=== PATIENT | female | born 1985 | race Caucasian/White ===

== ENCOUNTER → 2020-03-18 10:21 | Outpatient (BNVA) | payer OTHER, SELFPAY | PROVIDERS: Family Provider Family Medicine; PCP Family Medicine; Visit Provider Specialist | DX: G43.711 Chronic migraine without aura, intractable, with status migrainosus (principal) | CPT/HCPCS: 99213 ==

== ENCOUNTER → 2021-01-22 14:30 | Outpatient (BNVA) | payer OTHER, SELFPAY | PROVIDERS: Family Provider Family Medicine; PCP Family Medicine; Visit Provider Nurse Practitioner Women's Health | DX: N92.6 Irregular menstruation, unspecified (principal) | CPT/HCPCS: 76830; 84702 ==

== ENCOUNTER → 2021-04-15 08:58 | Outpatient (BNVA) | payer OTHER, SELFPAY | PROVIDERS: Family Provider Family Medicine; PCP Family Medicine; Visit Provider Specialist | DX: G43.711 Chronic migraine without aura, intractable, with status migrainosus (principal) | CPT/HCPCS: 99212; 99213 ==

== ENCOUNTER 2021-11-29 10:54 | Outpatient (CLI) | payer OTHER, SELFPAY ==
[2021-11-29 11:05] VITALS: BP 128/90; PULSE 82; RESP 17; TEMP 36.8; O2SAT 98; BMI 31.1
[2021-11-29 11:47] VITALS: BP 124/86; PULSE 75; RESP 17; TEMP 36.9; O2SAT 98
[2021-11-29 12:40] VITALS: BP 129/88; PULSE 81; RESP 17; TEMP 36.7; O2SAT 98
[2021-11-29 12:42] VITALS: BP 129/88; PULSE 81; RESP 17; TEMP 36.7; O2SAT 98
== END 2021-11-29 10:55 | disposition home or self-care (01) ==
LOC: OPS 11:08
PROVIDERS: PCP Nurse Practitioner Family; Visit Provider Nurse Practitioner Family
DX: U07.1 COVID-19 (principal)
CPT/HCPCS: 96365

== ENCOUNTER 2022-02-19 10:31 | Emergency (ER) | payer OTHER, SELFPAY ==
[2022-02-19 10:45] VITALS: BP 127/86; PULSE 107; RESP 20; TEMP 36.7; O2SAT 96; BMI 32.0
[2022-02-19 10:48] VITALS: BP 127/86; RESP 16; O2SAT 97
--- NOTE | 2022-02-19 10:56 | CTR_ITS ---
PROCEDURE INFORMATION: Exam: CT Head Without Contrast Exam date and time: 02/19/2022 11:22 AM Age: 36 years old Clinical indication: Pain; Headache/fever TECHNIQUE: Imaging protocol: Computed tomography of the head without contrast. Radiation optimization: All CT scans at this facility use at least one of these dose optimization techniques: automated exposure control; mA and/or kV adjustment per patient size (includes targeted exams where dose is matched to clinical indication); or iterative reconstruction. COMPARISON: CT head wo con* [id number] 03/25/2019 9:09 PM RADIATION DOSE METRICS: Total DLP (mGy-cm): 785.05 FINDINGS: Brain: Normal. No hemorrhage. Unremarkable white matter. No mass effect. Cerebral ventricles: No ventriculomegaly. Paranasal sinuses: Visualized sinuses are unremarkable. No fluid levels. Mastoid air cells: Visualized mastoid air cells are well aerated. Bones/joints: Unremarkable. No acute fracture. Soft tissues: Unremarkable. CT/CT head wo con* [id number] IMPRESSION: No acute intracranial abnormality.
[2022-02-19 11:16] LABS: Basophils % 0.3 %; Eosinophils % 0.2 %; Hematocrit 44.4 % (37.0-47.0); Hemoglobin 14.7 g/dL (11.5-15.3); Lymphocytes # 1.8 10^3/uL (0.8-4.8); Lymphocytes % 15.3 %; Mean Corpuscular HGB Conc 33.1 g/dL (30.0-36.0); Mean Corpuscular Hemoglobin 28.4 pg (28.0-34.0); Mean Corpuscular Volume 85.9 fl (81-99); Mean Platelet Volume 10.3 fL (7.4-10.4); Monocytes % 8.6 %; Neutrophils # 8.64 10^3/uL (1.8-7.7); Neutrophils % 75.4 %; Nucleated Red Blood Cells % 0 %; Platelet Count 215 10^3/cmm (130-400); Red Blood Count 5.17 10^6/uL (4.1-5.3); Red Cell Distribution Width 12.8 % (12.1-15.1); White Blood Count 11.5 10^3/uL (4.0-10.0)
[2022-02-19 11:29] LABS: Add Urine Microscopic? YES; Bilirubin Urine 1+ (Negative); Blood Urine 3+ (Negative); Glucose Urine UA Norm (Normal); Ketones Urine 1+ (Negative); Leukocyte Esterase Urine Negative (Negative); Nitrate Urine Negative (Negative); Protein Urine 3+ (Negative); Urine Appearance SL Hazy (CLEAR); Urine Color Dark Yellow (Yellow); Urobilinogen Urine 4 mg/dL (Negative); pH Urine 5 (5-7)
[2022-02-19 11:30] LABS: WBC Urine 0-4 /hpf (0-5)
[2022-02-19 11:31] LABS: Add Urine Culture? Yes; Bacteria Urine 2+ /hpf; Mucus Urine 1+ /hpf
[2022-02-19 11:42] LABS: Alanine Aminotransferase 46 U/L (0-33); Albumin Level 4.6 g/dL (3.5-5.2); Alkaline Phosphatase 104 IU/L (35-105); Anion Gap 15.5 (5-19); Aspartate Amino Transferase 35 U/L (0-32); Blood Urea Nitrogen 11 mg/dL (6-20); Calcium 9.8 mg/dL (8.5-10.5); Carbon Dioxide 23 mmol/L (22-29); Chloride 97 mmol/L (98-107); Globulin 3.8 g/dL (1.3-4.6); Glomerular Filtration Rate 81.2 mL/min (90-130); Glucose 111 mg/dL (65-115); Osmolality Calculated 274 mOsm/kg (285-295); Potassium 3.5 mmol/L (3.5-5.1); Sodium 132 mmol/L (136-145); Total Protein 8.4 g/dL (6.6-8.7)
[2022-02-19 11:48] LABS: Procalcitonin 0.32 ng/mL (0-0.5)
[2022-02-19] MEDS: lactated ringers 1,000 ML 999 ML IV (12:10)
[2022-02-19] MEDS: promethazine 25 mg/mL SDV 1 mL IM (12:12)
--- NOTE | 2022-02-19 13:22 | ED_ITS ---
HPI - Fever General: Chief Complaint: Fever Stated Complaint: extreme pain/fever/vomiting Time Seen by Provider: 02/19/22 10:55 Source: patient Mode of arrival: ambulatory History of Present Illness: 36-year-old female presents emergency room she was recently diagnosed with zoster in C2 distribution excluding severe headache with nausea and vomiting and temps up to 103 at times. She has some mild photophobia. Spine awake and alert and oriented. Headaches are something new and different. She is on antivirals and prednisone. I have not significantly helped. She denies any shortness of breath she does have some mild neck pain with extension. MD elicited complaint: fever and malaise Pertinent past history: other (Recently diagnosed with zoster) Exacerbating factors: other (Extension of the neck) Relieving factors: nothing Associated symptoms: Reports headache(s); Deny abdominal pain, flank pain, chills, chest pain, confusion, cough, diarrhea, dysuria, extremity pain, myalgias, nasal congestion, nausea, night sweats, rash, rhinorrhea, short of breath, sinus pain, stiffness, sore throat, vaginal discharge, vomiting or weight loss Treatments prior to arrival fever: none Review of Systems Const: Denies: chills or night sweats ENMT: Denies: nasal congestion or sinus pain Card: Denies: chest pain Resp: Denies: dyspnea, productive cough or non-productive cough GI: Denies: abdominal pain, nausea, vomiting or diarrhea : Denies: flank pain, dysuria or vaginal discharge Musc: Denies: extremity pain Skin/Breast: Denies: rash or pruritus Neuro: Reports: headache(s); Denies: confusion PFSH ED PFSH: Medical History Migraine headache Reports occasional aura in the past-no change in her headaches with estrogen contraception. No pertinent past medical history neghx: htn,dm,thyroid,dvt/pe Dr. Velasquez Surgical History History of breast augmentation gel History of breast biopsy benign History of carpal tunnel release Hx of wisdom tooth extraction (~2014) Family History Mother Hyperlipidemia Family history of thyroid problem Father Hyperlipidemia Hypertension Grandmother Family history of thyroid problem Maternal grandmother Diabetes Paternal grandmother Breast cancer PGM---dx age 60 Heart disease Maternal Family/Other Family history of thyroid problem Maternal aunt Breast cancer Maternal Great Aunt x2---dx age unknown Maternal Great Grandmother---dx age unknown Grandfather Stroke Paternal grandfather Diabetes Paternal grandfather Heart disease Paternal grandfather Colon cancer Paternal--dx age late 60's Social History Smoking and tobacco status: never smoked Second hand smoke exposure: No Alcohol intake: never Desire information about alcohol rehabilitation?: No Desire information about substance/drug rehabilitation?: No Female Reproductive History: Date of last menstrual period: 02/06/22 Physical Exam Const: GENERAL APPEARANCE: cooperative and comfortable ORIENTATION/CONSCIOUSNESS: Yes awake, Yes oriented to person, Yes oriented to place and Yes oriented to time HENMT: COMMON NORMALS: normocephalic, atraumatic, hearing grossly normal bilaterally, external ears normal, EAC's normal, TM's normal bilaterally, Normal nasal mucous membranes and turbinates present, moist oral mucous membranes and oropharynx normal HEAD & SCALP: normocephalic and atraumatic NOSE: Normal nasal mucous membranes and turbinates present EXTERNAL EAR: Yes external ears normal EXTERNAL AUDITORY CANAL: EAC's normal TYMPANIC MEMBRANE: TM's n ormal bilaterally Neck/C-Spine: COMMON NORMALS: no JVD Resp: COMMON NORMALS: normal respiratory effort, No retractions, No use of accessory muscles and clear to auscultation bilaterally AUSCULTATION: clear to auscultation bilaterally Cardio: COMMON NORMALS: no JVD, regular rate, regular rhythm and No murmurs p resent (Cardio) RATE: regular rate RHYTHM: regular rhythm GI: COMMON NORMALS: Soft to palpation and No hepatosplenomegaly present AUSCULTATION: Yes normoactive bowel sounds PALPATION: Yes Soft to palpation, No Tenderness to palpation present (GI), No Guarding due to palpation present (GI) and Yes No hepatosplenomegaly present Extremity: COMMON NORMALS: normal to inspection, capillary refill normal, no clubbing, cyanosis or edema, no calf tenderness and no pedal edema Neuro: SENSORIUM/ORIENTATION: Yes oriented to person, Yes oriented to place and Yes oriented to time Skin: COMMON NORMALS: no rashes or lesions noted GENERAL SKIN EXAM: no rashes or lesions noted Procedures Lumbar Puncture Time Out Performed: Yes Patient Position: right lateral decubitus Skin Prep: Povidone-Iodine 1% and 0.5% Chlorhexidine/Alcohol Amount of anesthesia used (mL): 3 Spinal Needle Gauge: 22G Interspace Used: L3-L4 Fluid Initially Obtained: clear Complications: none Course Vital Signs: Vital signs: Vital Signs Temperature 98.0 F 02/19/22 10:45 Pulse Rate 107 H 02/19/22 10:45 Respiratory Rate 16 02/19/22 18:31 Blood Pressure 127/86 02/19/22 10:48 Pulse Oximetry 97 02/19/22 18:31 MDM - Fever Medical Decision Making Concerned about meningitis or herpetic encephalitis associated with zoster. CT head and MRI head were negative lumbar tap negative patient is feeling somewhat better reviewed labs and imaging with her we will go ahead and discharge her home return if she has further problems follow-up with her primary care doc continue the antivirals. Medical Records I reviewed the patient's medical records. Lab Data I reviewed the patient's lab results. : 02/19/22 11:00 02/19/22 11:[address] 02/19/22 10:56 IMPRESSION: No acute intracranial abnormality. Head MRI 02/19/22 13:35 IMPRESSION: No acute intracranial findings. There is a partially visualized peripherally enhancing structure in the right neck soft tissues posterior to the parotid gland. CT scan soft tissues neck with contrast is recommended for further evaluation if clinically warranted. Laboratory Results WBC 11.5 10^3/uL (4.0-10.0) H 02/19/22 11:00 RBC 5.17 10^6/uL (4.1-5.3) 02/19/22 11:00 Hgb 14.7 g/dL (11.5-15.3) 02/19/22 11:00 Hct 44.4 % (37.0-47.0) 02/19/22 11:00 MCV 85.9 fl (81-99) 02/19/22 11:00 MCH 28.4 pg (28.0-34.0) 02/19/22 11:00 MCHC 33.1 g/dL (30.0-36.0) 02/19/22 11:00 RDW 12.8 % (12.1-15.1) 02/19/22 11:00 Plt Count 215 10^3/cmm (130-400) 02/19/22 11:00 MPV 10.3 fL (7.4-10.4) 02/19/22 11:00 Neut % (Auto) 75.4 % 02/19/22 11:00 Lymph % (Auto) 15.3 % 02/19/22 11:00 Quay % (Auto) 8.6 % 02/19/22 11:00 Eos % (Auto) 0.2 % 02/19/22 11:00 Baso % (Auto) 0.3 % 02/19/22 11:00 Neut # (Auto) 8.64 10^3/uL (1.8-7.7) H 02/19/22 11:00 Lymph # (Auto) 1.8 10^3/uL (0.8-4.8) 02/19/22 11:00 [place] # (Auto) 1.0 10^3/uL (0.2-0.9) H 02/19/22 11:00 Eos # (Auto) 0.0 10^3/uL (0.0-0.8) 02/19/22 11:00 Baso # (Auto) 0.0 10^3/uL (0.0-0.1) 02/19/22 11:00 Nucleated RBC % (auto) 0 % 02/19/22 11:00 Nucleated RBCs # 0.0 /100WBC 02/19/22 11:00 Sodium 132 mmol/L (136-145) L 02/19/22 11:00 Potassium 3.5 mmol/L (3.5-5.1) 02/19/22 11:00 Chloride 97 mmol/L (98-107) L 02/19/22 11:00 Carbon Dioxide 23 mmol/L (22-29) 02/19/22 11:00 Anion Gap 15.5 (5-19) 02/19/22 11:00 BUN 11 mg/dL (6-20) 02/19/22 11:00 Creatinine 0.8 mg/dL (0.5-0.9) 02/19/22 11:00 GFR Calculation 81.2 mL/min (90-130) L 02/19/22 11:00 Glucose 111 mg/dL (65-115) 02/19/22 11:00 Calculated Osmolality 274 mOsm/kg (285-295) L 02/19/22 11:00 Calcium 9.8 mg/dL (8.5-10.5) 02/19/22 11:00 Total Bilirubin 1.0 mg/dL (0.15-1.2) 02/19/22 11:00 AST 35 U/L (0-32) H 02/19/22 11:00 ALT 46 U/L (0-33) H 02/19/22 11:00 Alkaline Phosphatase 104 IU/L (35-105) 02/19/22 11:00 Total Protein 8.4 g/dL (6.6-8.7) 02/19/22 11:00 Albumin 4.6 g/dL (3.5-5.2) 02/19/22 11:00 Globulin 3.8 g/dL (1.3-4.6) 02/19/22 11:00 Procalcitonin 0.32 ng/mL (0-0.5) 02/19/22 11:00 Urine Color Dark yellow (Yellow) 02/19/22 11:00 Urine Appearance Sl hazy (CLEAR) 02/19/22 11:00 Urine pH 5 (5-7) 02/19/22 11:00 Ur Specific [place] 1.020 (1.005-1.030) 02/19/22 11:00 Urine Protein 3+ (Negative) H 02/19/22 11:00 Urine Glucose (UA) Norm (Normal) 02/19/22 11:00 Urine Ketones 1+ (Negative) H 02/19/22 11:00 Urine Blood 3+ (Negative) H 02/19/22 11:00 Urine Nitrate Negative (Negative) 02/19/22 11:00 Urine Bilirubin 1+ (Negative) H 02/19/22 11:00 Urine Urobilinogen 4 mg/dL (Negative) H 02/19/22 11:00 Ur Leukocyte Esterase Negative (Negative) 02/19/22 11:00 Urine RBC 5-10 /hpf (0-2) H 02/19/22 11:00 Urine WBC 0-4 /hpf (0-5) H 02/19/22 11:00 Ur Squamous Epith Cells 5-10 /hpf (0-5) H 02/19/22 11:00 Amorphous Sediment Not Reportable 02/19/22 11:00 Urine Bacteria 2+ /hpf (NONE) H 02/19/22 11:00 Urine Mucus 1+ /hpf 02/19/22 11:00 CSF Appearance Clear (CLEAR) 02/19/22 14:40 CSF Color Colorless (COLORLESS) 02/19/22 14:40 CSF Specific [place] 1.005 02/19/22 14:40 CSF WBC 2 /uL (0-5) 02/19/22 14:40 CSF RBC 0 10^3/uL (0-0) 02/19/22 14:40 CSF Mononuclear # Auto 0.001 10^3/uL (50-90) L 02/19/22 14:40 CSF Mononuclear WBCs % 50 % (50-90) 02/19/22 14:40 CSF Polynuclear WBCs # 0.001 10^3/uL (0-10) 02/19/22 14:40 CSF Polynuclear WBCs % 50 % (0-10) H 02/19/22 14:40 CSF Glucose 65 mg/dL (40-70) 02/19/22 14:40 CSF Total Protein 16 mg/dL (15-45) 02/19/22 14:40 Discharge Plan Discharge Patient Disposition: Home Clinical Impression: Migraine headache, Zoster Condition: Stable Prescriptions: New promethazine 25 mg tablet 25 mg PO Q6H PRN (Reason: nausea and vomiting) Qty: 20 0RF No Action ascorbate calcium (vitamin C) 500 mg tablet 500 mg PO DAILY 0RF escitalopram oxalate [Lexapro] 20 mg tablet 20 mg PO DAILY Qty: 90 3RF buspirone 7.5 mg tablet 7.5 mg PO BID Qty: 90 3RF Aimovig Autoinjector 140 mg/mL auto-injector 140 mg SUBCUT .MONTHLY Qty: 1 11RF sumatriptan succinate [Imitrex] 100 mg tablet 100 mg PO Q2H PRN (Reason: migraine headache) Qty: 9 6RF valacyclovir 1 gram tablet 1,000 mg PO Q8H 7 Days Qty: 21 0RF pregabalin 165 mg tablet extended release 24 hr 165 mg PO DAILY Qty: 30 0RF Rx Instructions: must administer with a meal/food 340 B if needed. prednisone 5 mg tablets,dose pack See Rx Instructions PO PER PKG DIR Qty: 21 0RF Rx Instructions: PO PER PKG DIR Lidocaine Pain Relief 4 % aerosol,spray 1 spray topical QID PRN (Reason: pain) Qty: 113 0RF hydrocodone-acetaminophen 5-325 mg tablet 1 tab PO Q4H PRN (Reason: pain) 5 Days Qty: 30 0RF Discharge Orders: Discharge ED (Routine); Ordered 02/19/22 Ordered By: Jaxon Amos Referrals: Tracie Olivo FNP-C [Primary Care Provider] - Discharge Diet: Usual diet Discharge Activity: Resume usual activity Patient Instructions: Opioid Safety Activity Restrictions/Additional Instructions: Turn if you have any further problems use the promethazine as needed. Coding Level of Care Code ED [facility] Exam Comprehensive
--- NOTE | 2022-02-19 13:35 | MRR_ITS ---
PROCEDURE INFORMATION: Exam: MR Head Without and With Contrast Exam date and time: 02/19/2022 3:43 PM Age: 36 years old Clinical indication: Patient HX: Recent history of shingles on the posterior part of the neck and head/high fever and vomiting the last 3 days; Additional info: Zoster/fever TECHNIQUE: Imaging protocol: MR of the head without and with intravenous contrast. COMPARISON: CT head wo con* [id number] 02/19/2022 11:22 AM FINDINGS: Brain: Normal. No acute infarct. No hemorrhage. No significant white matter disease. No edema. After contrast administration, no abnormal intracranial enhancement is seen. Cerebral ventricles: Normal. No ventriculomegaly. Bones/joints: Unremarkable. Paranasal sinuses: Normal as visualized. No acute sinusitis. Mastoid air cells: Normal as visualized. No mastoid effusion. Orbital cavities: Unremarkable. Soft tissues: There is a partially visualized peripherally enhancing structure in the right neck soft tissues posterior to the parotid gland measuring 2.3 x 0.9 cm in the craniocaudad/transverse dimensions. MR/MR head wo/w con [id number] IMPRESSION: No acute intracranial findings. There is a partially visualized peripherally enhancing structure in the right neck soft tissues posterior to the parotid gland. CT scan soft tissues neck with contrast is recommended for further evaluation if clinically warranted.
[2022-02-19] MEDS: morphine 4 mg/mL SDV 1 mL 6 MG IVP ×2 (14:07→18:31)
[2022-02-19] MEDS: LORazepam 2 mg/mL INJ 1 mL IVP (14:07)
[2022-02-19] MEDS: lidocaine 2% INJ 20 mL INJECTION (14:51)
[2022-02-19 15:29] LABS: CSF Mononuclear # 0.001 10^3/uL (50-90); Mononuclear WBC CSF % 50 % (50-90); Polynuclear Cells ,CSF # 0.001 10^3/uL (0-10); Polynuclear WBC CSF % 50 % (0-10); Red Blood Cell CSF 0 10^3/uL (0-0); White Blood Cell CSF 2 /uL (0-5)
[2022-02-19 15:31] LABS: CSF Specific Gravity 1.005
[2022-02-19 15:58] LABS: Glucose CSF 65 mg/dL (40-70); Total Protein CSF 16 mg/dL (15-45)
[2022-02-19] MEDS: gadobenate dimeglumine 20 mL vial IV (16:02)
[2022-02-19 16:13] LABS: Appearance CSF CLEAR (CLEAR); Color CSF COLORLESS (COLORLESS)
[2022-02-19 18:31] VITALS: RESP 16; O2SAT 97
== END 2022-02-19 18:30 | disposition home or self-care (01) ==
PROVIDERS: Emergency Provider Family Medicine; PCP Nurse Practitioner Family
DX: G43.909 Migraine, unspecified, not intractable, without status migrainosus (principal); B02.9 Zoster without complications
CPT/HCPCS: 62270; 70450; 70553; 80053; 80503; 81001; 82945; 84145; 84157; 84315; 85025; 87040; 87070; 87075; 87086; 87205; 89050; 96361; 96372; 96374; 96375; 96376; 99284; A9577; J2060; J2270; J2550

== ENCOUNTER → 2024-07-17 09:10 | Outpatient (BNVA) | payer BC, SELFPAY | PROVIDERS: Visit Provider Nurse Practitioner Women's Health | DX: Z12.4 Encounter for screening for malignant neoplasm of cervix (principal) | CPT/HCPCS: 87624 ==

== ENCOUNTER → 2024-08-08 13:27 | Outpatient (BNVA) | payer BC, SELFPAY | PROVIDERS: Visit Provider Nurse Practitioner Women's Health | DX: E28.2 Polycystic ovarian syndrome (principal); R10.2 Pelvic and perineal pain; N88.8 Other specified noninflammatory disorders of cervix uteri | CPT/HCPCS: 76830 ==

== ENCOUNTER 2024-10-30 05:54 | Day surgery (SDC) | payer BC, SELFPAY ==
[2024-10-21 11:14] LABS: Basophils % 0.3 %; Eosinophils # 0.1 10^3/uL (0.0-0.8); Hematocrit 44.4 % (36-47); Lymphocytes # 1.7 10^3/uL (0.8-4.8); Lymphocytes % 27.4 %; Mean Corpuscular HGB Conc 32.2 g/dL (30-55); Mean Corpuscular Volume 86.9 fl (85-98); Mean Platelet Volume 10.4 fL (7.4-10.4); Monocytes # 0.4 10^3/uL (0.2-0.9); Monocytes % 6.3 %; Neutrophils # 4.03 10^3/uL (1.8-7.7); Neutrophils % 64.7 %; Nucleated Red Blood Cells % 0 %; Platelet Count 221 10^3/cmm (157-399); Red Blood Count 5.11 10^6/uL (3.85-5.65); Red Cell Distribution Width 12.1 % (12.1-15.1); White Blood Count 6.23 10^3/uL (3.29-11.43)
--- NOTE | 2024-10-21 11:17 | ANES.PREANE2 ---
Pre-Anesthetic Assessment Height/Weight: Height 5 ft 2 in Preop Diagnosis: Pelvic pain Operation Date: 10/30/24 07:10 Proposed Procedures p Laparoscopy Diagnostic - 77507, R10.2(Not Applicable) - Adalberto Perez MD Was Beta Aurora taken within 24 hours: N/A Was Clonidine taken within 24 hours: N/A Social No alcohol and No tobacco Exam alert, oriented x 3, clear to auscultation bilaterally and regular rate & rhythm Airway Submandibular: within normal limits Cervical ROM: within normal limits Mallampati: Class I Dentition: full Anesthetic Plan ASA status: 2 Anesthesia: General Other: No prior issues with anesthesia NPO at midnight prior to surgery Denies any cardiac or pulmonary issues Chronic migraines, on Imitrex Labs 10/21/2024 reviewed acceptable for procedure METs greater than 4 Plan for GETA Medications/Allergies Home Medications Medication Instructions Recorded Confirmed Last Taken Type sumatriptan succinate 100 mg 100 mg PO Q2H PRN migraine 06/17/22 10/21/24 Unknown Rx tablet (Imitrex) headache #9 tabs erenumab-aooe 140 mg/mL See Rx Instructions .Route 07/25/23 10/21/24 Unknown Rx subcutaneous auto-injector .COMPLEX #1 mL (Aimovig Autoinjector) ibuprofen 800 mg tablet 800 mg PO TID #90 tabs 09/11/24 10/21/24 Unknown Rx Allergies Allergy/AdvReac Type Severity Reaction Status Date / Time No Known Allergies Allergy Verified 10/21/24 08:52 [facility] Anesthesia Medical History No pertinent past medical history neghx: htn,dm,thyroid,dvt/pe PCP: Magda Bass NP Migraine headache Reports occasional aura in the past-no change in her headaches with estrogen contraception. Surgical History Hx of wisdom tooth extraction (~2014) History of breast biopsy benign History of breast augmentation gel History of carpal tunnel release Family History Mother Hyperlipidemia Family history of thyroid problem Father Hyperlipidemia Hypertension Grandmother Family history of thyroid problem Maternal grandmother Diabetes Paternal grandmother Breast cancer PGM---dx age 60 Heart disease Maternal Family/Other Family history of thyroid problem Maternal aunt Breast cancer Maternal Great Aunt x2---dx age unknown Maternal Great Grandmother---dx age unknown Grandfather Stroke Paternal grandfather Diabetes Paternal grandfather Heart disease Paternal grandfather Colon cancer Paternal--dx age late 60's Social History Smoking and tobacco/nicotine status: never used tobacco/nicotine Data Anesthesia 10/21/24 11:08 10/21/24 11:08 Short CBC 10/21/24 Range/Units 11:08 WBC 6.23 (3.29-11.43) 10^3/uL Hgb 14.30 (11.27-16.99) g/dL Hct 44.4 (36-47) % MCV 86.9 (85-98) fl Plt Count 221 (157-399) 10^3/cmm Neut % (Auto) 64.7 % Neut # (Auto) 4.03 (1.8-7.7) 10^3/uL Cardiac Studies: No Data to Display
[2024-10-21 11:31] LABS: Bilirubin Urine Negative (Negative); Blood Urine Negative (Negative); Glucose Urine UA Negative (Normal); Ketones Urine Negative (Negative); Leukocyte Esterase Urine Negative (Negative); Nitrate Urine Negative (Negative); OR HCG Qualitative Urine Negative (Negative); Protein Urine Negative (Negative); Specific Gravity, Urine 1.008 (1.005-1.030); Urine Appearance Clear (CLEAR); Urine Color Yellow (Yellow); Urobilinogen Urine 0.2 mg/dL (Negative)
[2024-10-21 11:32] LABS: Alanine Aminotransferase 15 U/L (0-33); Albumin Level 4.4 g/dL (3.5-5.2); Alkaline Phosphatase 73 U/L (35-105); Anion Gap 12.1 (5-19); Aspartate Amino Transferase 13 U/L (0-32); Blood Urea Nitrogen 8 mg/dL (6-20); Calcium 8.7 mg/dL (8.5-10.5); Carbon Dioxide 27 mmol/L (22-29); Chloride 102 mmol/L (98-107); Globulin 2.6 g/dL (1.3-4.6); Glomerular Filtration Rate 93.2 mL/min (90-130); Glucose 90 mg/dL (65-115); Osmolality Calculated 282 mOsm/kg (285-295); Potassium 4.1 mmol/L (3.5-5.1); Sodium 137 mmol/L (136-145); Total Bilirubin 0.4 mg/dL (0.15-1.2)
[2024-10-21 11:33] LABS: Add Urine Microscopic? YES; Bacteria Urine None Seen /hpf; Hyaline Casts Urine 0-4 /lpf; RBC Urine 0-2 /hpf (0-2); Squamous Epithelial Cell Urine 0-5 /hpf (0-5); WBC Urine 0-5 /hpf (0-5)
[2024-10-30] VITALS (13 sets, daily range): BP systolic 89–111; BP diastolic 63–75; PULSE 65–88; RESP 16–20; TEMP 36.1–36.9; O2SAT 90–97; BMI 25.4
--- NOTE | 2024-10-30 06:10 | P.ANESUD_ITS ---
Pre-Anesthetic Update Pre-Anesthetic Assessment: Date of Surgery/Procedure: 10/30/24 Preop Olimpia gnosis: chronic pelvic pain Proposed Procedure: Operation Date: 10/30/24 07:00 Proposed Procedures p Laparoscopy Diagnostic - 21771, R10.2(Not Applicable) - Adalberto Perez MD Changes from Pre-Anesthetic Assessment: No changes since patient was last seen, NPO since yesterday Plan for GETA Cardiac Studies: No Data to Display
[2024-10-30 06:18] LABS: OR HCG Qualitative Urine Negative (Negative)
[2024-10-30] MEDS: sodium chloride 0.9% 1,000 ML 30 ML IV (06:24)
[2024-10-30] MEDS: scopolamine 1.5 Patch 1 PATCH TRANSDERMA (06:24)
--- NOTE | 2024-10-30 07:05 | W.PM.OPSUD ---
Surgery/Procedure H&P Update DATE OF PROCEDURE: October 30, 2024 DATE H&P PERFORMED: 10/21/24 H&P UPDATE INFORMATION: I have reviewed H&P completed within last 30 days, I have examined patient prior to procedure and No changes to prior documentation PREOP DIAGNOSIS: chronic pelvic pain PLANNED PROCEDURE: Operation Date: 10/30/24 07:00 Proposed Procedures p Laparoscopy Diagnostic - 86507, R10.2(Not Applicable) - Adalberto Perez MD
[2024-10-30] MEDS: ceFAZolin 2,000 mg SDV 2000 MG IVP (07:06)
[2024-10-30] MEDS: BUPivacaine 0.5% INJ 10 mL INJECTION (07:48)
--- NOTE | 2024-10-30 08:13 | P.OP_ITS ---
Operative Report Date of procedure: October 30, 2024 Pre-op diagnosis: Pelvic pain Post-op diagnosis: Pelvic pain Left ovarian cyst Procedure done: Diagnostic laparoscopy Cystectomy Specimens removed/disposition: Left ovarian cyst capsule Left ovarian cyst fluid Surgeon: Adalberto Perez MD Estimated blood loss (mL): 10 IV fluids (mL): 1,500 Urine output (mL): 50 Complications: none Findings: Large left ovarian simple cyst Procedure: After informed consent, the patient was taken to the operating room where general anesthesia was administered. Pre-Procedure Time-Out verifying the correct patient identity, correct procedure verified with consent, correct site and side, correct patient position, availability of correct implants and any special equipment or requirements was performed and acknowledge by the OR team. She was placed in the dorsal lithotomy position and prepped and draped in sterile fashion. The patient was examined under anesthesia and found to have a normal uterus with normal adnexa. A Camejo catheter was placed in the bladder. A weighted speculum was placed in the vagina, and the anterior lip of cervix was grasped with the single toothed tenaculum. The uterus was sounded to a measure 8 cm. A uterine manipulator was advanced into the endocervical and its bulb filled with NS. Tenaculum was removed after uterine manipulator was secured. The speculum was removed from the vagina. The attention was brought to abdomen after changing gloves. The base of the umbilicus was grasped with an Allis clamp and with 2 towel clamp bilaterally tenting up the umbilicus an intraumbilical incision was made with a scalpel. While tenting up on the abdomen, a Verres needle with sleeve was admitted into the intra-abdominal cavity. A saline drop test was performed and noted to be within normal limits. Pneumoperitoneum was attained with 4 liters of carbon dioxide. The gas was seen to flow freely with normal resistance, so the CO2 gas was advanced to a higher setting. The abdomen was insufflated to an adequate distension. Once an adequate distention was reached, the Verres needle was removed. Then a 5 mm Optiview trocar and cannula were inserted under direct visualization without complications. Trocars were removed and the laparoscope was inserted. At this time, a second incision was made 3 cm above the symphysis pubis, and a 5 mm trocar and sleeve were admitted into the abdomen under direct, laparoscopic visualization without complication. A 5 mm blunt probe was advanced through the second trocar sleeve, and light manipulation of ovaries and uterus to assess the pelvis and posterior aspects was performed. The survey showed large left ovarian cyst. A third incision was made in the left lower quadrant and the third trocar was inserted into the abdomen under direct visualization. Also an incision was made in the right lower quadrant and a 5mm trocar was inserted under direct visualization without complcations . Examination of the pelvis revealed findings as above. At this time, the left ovarian cyst appeared to be simple. Attention was turned to the left ovary which was mobilized out of the pelvis. An approximately 4 cm incision was made along the ovary using laparoscopic scissors. At this point, it was dissected initially using hydrodissection and using blunt dissection. Using a laparoscopic aspiration needle suction was used to drain fluid at this time from the cyst. At this time, the cyst wall was identified and was removed using blunt dissection with countertraction. The ovarian bed was then irrigated and dried. There was slight oozing noted. Hemostasis was assured. A Surgicel was applied to the left ovary for adhesion prevention. At this time, all instruments were removed under visualization. The umbilical incision was closed using 2 interrupted stitches of 2-0 Vicryl sutures and the skin was closed using interrupted stitches of 4-0 Monocryl suture. Dermabond placed after closure suture on the ports. All instruments were removed. There was slight oozing noted at the site of the single-toothed te naculum insertion, obtained hemostasis using ring forceps pressure and Monsel solution. The instruments were removed from the vagina, and excellent hemostasis was noted. The patient tolerated the procedure well, and sponge, lap and needle count were correct times two. The patient taken to the recovery room in good condition.
[2024-10-30] MEDS: fentaNYL 50 mcg/mL INJ 2mL IVP ×2 (08:40→08:50)
[2024-10-30] MEDS: HYDROmorphone 1 mg/mL INJ 1 mL 0.5 MG IVP (09:03)
[2024-10-30] MEDS: HYDROcodone-acetaminophen 5-325 mg Tablet 1 TAB PO (09:32)
[2024-10-30 09:51] LABS: Cyto Order Verification No Order
--- NOTE | 2024-10-30 10:10 | ANE.PACU2 ---
Inpatient post-anesthesia follow up: Airway intact: Yes Vital signs: Temperature 97.2 F Pulse Rate 85 Respiratory Rate 20 Blood Pressure 101/64 Pulse Oximetry 94 Oxygen Delivery Me thod Room Air Oxygen Flow Rate Fraction of Inspir ed Oxygen Hydration adequate: Yes Nausea and vomiting: No Pain level: 1 Mental status: Baseline
== END 2024-10-30 10:10 | disposition home or self-care (01) ==
PROVIDERS: PCP Nurse Practitioner Family; Visit Provider Obstetrics & Gynecology
PROC: (CPT 49320; principal; 2024-10-30 07:00)
DX: N83.202 Unspecified ovarian cyst, left side (principal)
CPT/HCPCS: 49322; 36415; 80053; 81001; 81025; 85025; 86850; 86900; 88173; 88305; J0690; J1100; J1171; J1885; J2250; J2405; J2704; J3010; J3490; J7030

== ENCOUNTER 2025-03-17 17:00 | Emergency (ER) | payer OTHER, SELFPAY ==
[2025-03-17 17:07] VITALS: BP 110/76; PULSE 107; RESP 16; TEMP 36.8; O2SAT 97; BMI 26.5
--- NOTE | 2025-03-17 19:51 | ED_ITS ---
HPI - Headache General: Chief Complaint: Headache Stated Complaint: ALBRIGHT for 4 days, n/v/f Time Seen by Provider: 03/17/25 19:16 Source: patient Mode of arrival: ambulatory Limitations: no limitations History of Present Illness: Patient is a 39-year-old female who presents the emergency department complaining of a headache for the past 3 days. Reports a history of migraine headaches, stating this feels similar to this has been unable to break it. She takes Imitrex and ibuprofen as abortive therapy. States that she used to see a neurologist but has not in years. Notes that the only thing somewhat different about this is she has had intermittent numbness of right side of her face, but notes that this is minor. States that she recently started a new job and that she has been under more stress. She is noting low-grade fevers, nausea, and vomiting. No trouble walking, seizure-like activity, or other neurological deficits reported. MD elicited complaint: headache and migraine Pertinent past history: migraines Onset (ago): day(s) Onset description: gradually Location: diffuse Severity: similar to previous episodes Exacerbating factors: light and noise Relieving factors: nothing Associated symptoms: Reports fever(s), nausea and vomiting; Deny chest pain, lightheadedness or rash Treatments prior to arrival: ibuprofen and migraine medication Related Data Previous Rx's ?Medication ?Instructions ?Recorded sumatriptan succinate 100 mg 100 mg PO Q2H PRN migrain e 06/17/22 tablet (Imitrex) headache #9 tabs erenumab-aooe 140 mg/mL See Rx Instructions .Route 0 07/25/23 subcutaneous auto-injector .COMPLEX #1 mL (Aimovig Autoinjector) ibuprofen 800 mg tablet 800 mg PO TID #90 tabs 09/11 acetaminophen 325 mg capsule 325 mg PO Q4H PRN fever o r pain 10/30/24 #60 caps hydrocodone 5 mg-acetaminophen 325 1 tab PO Q4H PRN pa in #20 tabs 10/30/24 mg tablet ibuprofen 800 mg tablet 800 mg PO TID PRN pain #60 t abs 10/30/24 medroxyprogesterone 150 mg/mL 150 mg IM ONCE Contracep tion, 11/14/24 intramuscular syringe abnormal uterine bleeding, (Depo-Provera) endometriosis #1 mL elagolix 150 mg tablet (Orilissa) 150 mg PO DAILY dysm enorrhea #90 02/13/25 tabs Allergies Allergy/AdvReac Type Severity Reaction Status Date / Time No Known Allergies Allergy Verified 03/17/25 17:14 Review of Systems General: Reports: 10 or more systems reviewed and unremarkable except in HPI and below Const: Reports: fever(s); Denies: chills or fatigue Eyes: Denies: change in vision ENMT: Denies: throat pain, ear or mastoid pain or nasal discharge Card: Denies: chest pain, palpitations, swelling of feet/ankles or lightheadedness Resp: Denies: dyspnea, productive cough or wheezing GI: Reports: nausea and vomiting; Denies: abdominal pain, diarrhea or constipation : Denies: flank pain, difficulty voiding, dysuria or urinary frequency Musc: Denies: neck pain, back pain or joint pain Skin/Breast: Denies: rash Neuro: Reports: headache(s); Denies: numbness in extremities or weakness in extremities PFSH ED PFSH: Medical History No pertinent past medical history neghx: htn,dm,thyroid,dvt/pe PCP: Magda Bass NP Migraine headache Reports occasional aura in the past-no change in her headaches with estrogen contraception. Surgical History Hx of wisdom tooth extraction (~2014) History of breast biopsy benign History of breast augmentation gel History of carpal tunnel release Family History Mother Hyperlipidemia Family history of thyroid problem Father Hyperlipidemia Hypertension Grandmother Family history of thyroid problem Maternal grandmother Diabetes Paternal grandmother Breast cancer PGM---dx age 60 Heart disease Maternal Family/Other Family history of thyroid problem Maternal aunt Breast cancer Maternal Great Aunt x2---dx age unknown Maternal Great Grandmother---dx age unknown Grandfather Stroke Paternal grandfather Diabetes Paternal grandfather Heart disease Paternal grandfather Colon cancer Paternal--dx age late 60's Social History Smoking and tobacco/nicotine status: never used tobacco/nicotine Physical Exam Const: COMMON NORMALS: no acute distress, patient oriented x3 and no limitations GENERAL APPEARANCE: cooperative, comfortable and well developed ORIENTATION/CONSCIOUSNESS: Yes awake, Yes oriented to person, Yes oriented to place and Yes oriented to time HENMT: COMMON NORMALS: normocephalic, atraumatic and hearing grossly normal bilaterally HEAD & SCALP: normocephalic and atraumatic Eye: COMMON NORMALS: Equal, round and reactive pupils present, EOMs intact bilaterally and conjunctivae normal CONJUNCTIVA: Yes conjunctivae normal PUPIL: Yes Equal, round and reactive pupils present Neck/C-Spine: COMMON NORMALS: full ROM, supple and no JVD Resp: COMMON NORMALS: normal respiratory effort, No retractions, No use of accessory muscles and clear to auscultation bilaterally AUSCULTATION: clear t o auscultation bilaterally Cardio: COMMON NORMALS: no JVD, regular rate, regular rhythm, No clicks present (Cardio), No murmurs present (Cardio) and No rub (Cardio) RATE: regular rate RHYTHM: regular rhythm Extremity: COMMON NORMALS: normal to inspection, full ROM and capillary refill normal Neuro: COMMON NORMALS: patient oriented x3, CN's II-XII intact bilaterally, moves all extremities, no focal motor deficits and no sensory deficits noted SENSORIUM/ORIENTATION: Yes oriented to person, Yes oriented to place and Yes oriented to time Skin: COMMON NORMALS: no rashes or lesions noted GENERAL SKIN EXAM: no rashes or lesions noted Course Vital Signs: Vital signs: Vital Signs Temperature 98.3 F 03/17/25 17:07 Pulse Rate 86 03/17/25 22:00 Respiratory Rate 16 03/17/25 17:07 Blood Pressure 110/85 03/17/25 22:00 Pulse Oximetry 91 03/17/25 22:00 Oxygen Delivery Me thod Room Air 03/17/25 22:00 MDM - Headache Medical Decision Making Patient presented with complaints of classical migraine headache, bothering her for the past few days not improved from ibuprofen or Imitrex. Used to see a neurologist, and used to receive Aimovig shots but states that has not since insurance changed. Did not report that this was the worst headache of her life, states this felt like possible migraine she has also been dealing with sinus issues recently that she thinks has made it worse. Also began a new job, may be related to stress. Ultimately her neurological evaluation and the rest of her exam was unremarkable. She was treated with IV migraine cocktail here, notes that her pain dropped all the way down to a 4 and states that she was ready to go home and treat at home. Encouraged her to get Flonase [id number] and take other decongestants and to follow-up with regular doctor if she continues to have issues with her sinuses as may need to treat for a sinus infection. Ultimately I do not feel that there is any acute process going on, I feel this is related to her chronic migraines and will refer her to a neurologist for reevaluation. Gave her strict return precautions, she verbalized understanding will be discharged at this time. No radiology studies performed this visit Discharge Plan Discharge Patient Disposition: Home Clinical Impression: Chronic migraine without aura, intractable, with status migrainosus Condition: Stable Prescriptions: No Action ibuprofen 800 mg tablet 800 mg PO TID Qty: 90 3RF medroxyprogesterone [Depo-Provera] 150 mg/mL syringe 150 mg IM ONCE Qty: 1 0RF sumatriptan succinate [Imitrex] 100 mg tablet 100 mg PO Q2H PRN (Reason: migraine headache) Qty: 9 6RF Aimovig Autoinjector 140 mg/mL auto-injector See Rx Instructions .ROUTE .COMPLEX Qty: 1 0RF Dose Instruction: INJECT 140MG SUBCUTANEOUSLY ONCE A MONTH Rx Instructions: INJECT 140MG SUBCUTANEOUSLY ONCE A MONTH: Must have appointment for more refills Orilissa 150 mg tablet 150 mg PO DAILY Qty: 90 0RF ibuprofen 800 mg tablet 800 mg PO TID PRN (Reason: pain) Qty: 60 0RF hydrocodone-acetaminophen 5-325 mg tablet 1 tab PO Q4H PRN (Reason: pain) Qty: 20 0RF acetaminophen 325 mg capsule 325 mg PO Q4H PRN (Reason: fever or pain) Qty: 60 0RF Discharge Orders: Discharge ED (Routine); Ordered 03/17/25 Ordered By: Reese Pearson Referrals: Magda Bass [Primary Care Provider] - Patient Instructions: Migraine Headache (ED) Activity Restrictions/Additional Instructions: Follow-up with neurology. Drink plenty of fluids. Flonase and decongestants at home as we discussed. Continue taking her Imitrex and ibuprofen. Please return if your headache persists or worsens, or you develop any other new concerning symptoms. Print Language: Mongolian Coding Level of Care Code ED Sludge Filtration Operator for Alyssa Oro
[2025-03-17] MEDS: sodium chloride 0.9% 1,000 ML 999 ML IV (19:52)
[2025-03-17] MEDS: diphenhydrAMINE 50 mg/mL SDV 1mL 25 MG IVP (19:55)
[2025-03-17] MEDS: ondansetron 2 mg/ML SDV 2 mL 4 MG IVP (19:57)
[2025-03-17] MEDS: dihydroergotamine 1 mg/mL Inj 0.5 MG IVP ×2 (20:01→20:23)
[2025-03-17 20:04] VITALS: BP 128/91
[2025-03-17 21:00] VITALS: BP 114/80; PULSE 80; O2SAT 96
--- NOTE | 2025-03-17 21:26 | PC.NURSE ---
spoke to ABRAM Pearson, pt received 2 doses of DHE with pain going from 8 to 7, stop dhe, give toradol.
[2025-03-17] MEDS: ketorolac 30 mg/mL INJ IVP (21:29)
[2025-03-17 22:00] VITALS: BP 110/85; PULSE 86; O2SAT 91
[2025-03-17 22:32] VITALS: BP 102/81; PULSE 88; O2SAT 94
--- NOTE | 2025-03-19 08:02 | DCPLANNER ---
Message sent to Neurology for follow up-[facility] - Headache Patient presented with complaints of classical migraine headache, bothering her for the past few days not improved from ibuprofen or Imitrex. Used to see a neurologist, and used to receive Aimovig shots but states that has not since insurance changed. Did not report that this was the worst headache of her life, states this felt like possible migraine she has also been dealing with sinus issues recently that she thinks has made it worse. Also began a new job, may be related to stress. Ultimately her neurological evaluation and the rest of her exam was unremarkable. She was treated with IV migraine cocktail here, notes that her pain dropped all the way down to a 4 and states that she was ready to go home and treat at home. Encouraged her to get Flonase [id number] and take other decongestants and to follow-up with regular doctor if she continues to have issues with her sinuses as may need to treat for a sinus infection. Ultimately I do not feel that there is any acute process going on, I feel this is related to her chronic migraines and will refer her to a neurologist for reevaluation. Gave her strict return precautions, she verbalized understanding will be discharged at this time. No radiology studies performed this visit
== END 2025-03-17 22:33 | disposition home or self-care (01) ==
PROVIDERS: Emergency Provider Physician Assistant; PCP Nurse Practitioner Family
DX: G43.711 Chronic migraine without aura, intractable, with status migrainosus (principal)
CPT/HCPCS: 96361; 96374; 96375; 96376; 99284; J1110; J1200; J1885; J2405; J7030